=== PATIENT | female | born 1945 ===

== ENCOUNTER 2018-12-12 12:50 | Outpatient (CLI) | payer OTHER | END 2018-12-12 12:51 | disposition home or self-care (01) | LOC: RAD 12:50 | DX: M81.0 Age-related osteoporosis without current pathological fracture (principal) ==

== ENCOUNTER 2018-12-17 15:58 | Outpatient (CLI) | payer OTHER | END 2018-12-17 15:59 | disposition home or self-care (01) | LOC: OPLAB 15:58 | DX: D72.829 Elevated white blood cell count, unspecified (principal); D64.9 Anemia, unspecified; E78.5 Hyperlipidemia, unspecified; M81.0 Age-related osteoporosis without current pathological fracture; E83.40 Disorders of magnesium metabolism, unspecified; C50.919 Malignant neoplasm of unspecified site of unspecified female breast; R97.8 Other abnormal tumor markers ==

== ENCOUNTER 2019-01-21 13:18 | Outpatient (CLI) | payer OTHER | END 2019-01-21 13:19 | disposition home or self-care (01) | LOC: CARDIO 13:18 ==

== ENCOUNTER 2019-01-24 09:57 | Outpatient (CLI) | payer OTHER | END 2019-01-24 09:58 | disposition home or self-care (01) | LOC: LAB 09:57 ==

== ENCOUNTER 2019-01-30 18:08 | Outpatient (CLI) | payer OTHER | END 2019-01-30 18:09 | disposition home or self-care (01) | LOC: OPLAB 18:08 ==

== ENCOUNTER 2019-03-04 07:26 | Outpatient (CLI) | payer OTHER | END 2019-03-04 07:27 | disposition home or self-care (01) | LOC: PET-BROA 07:26 | DX: C50.919 Malignant neoplasm of unspecified site of unspecified female breast (principal); C78.01 Secondary malignant neoplasm of right lung ==

== ENCOUNTER → 2019-03-06 | Outpatient (CLI) | payer OTHER | LOC: OPLAB 18:15 ==

== ENCOUNTER 2019-03-11 08:57 | Day surgery (SDC) | payer OTHER ==
[2019-03-07 16:24] VITALS: BMI 37.1
[2019-03-11] MEDS ORDERED: Etomidate 20 mg/10ml Inj IV ONE ×2 (11:21→12:01)
[2019-03-11] MEDS ORDERED: Propofol 10 mg/ml Inj (20 ML) ONE (11:21)
[2019-03-11] MEDS ORDERED: DiphenhydrAMINE 50 mg/ml Inj ONE (11:29)
[2019-03-11] MEDS ORDERED: Simethicone 40 mg/0.6 ml Liquid (30 ml) ONE (11:41)
[2019-03-11] MEDS ORDERED: Esmolol 100 mg/10ml Inj IV ONE (11:42)
[2019-03-11] MEDS ORDERED: Sodium Chloride 0.9% 1,000 ML IV SCH (12:15)
[2019-03-11 15:49] VITALS: BP 141/63; PULSE 88; RESP 16; TEMP 98.7; O2SAT 95
== END 2019-03-11 13:43 | disposition home or self-care (01) ==
LOC: ENDO 08:57
PROVIDERS: ATTEND Internal Medicine Gastroenterology
DX: K31.7 Polyp of stomach and duodenum (principal); K29.50 Unspecified chronic gastritis without bleeding; K44.9 Diaphragmatic hernia without obstruction or gangrene; K21.0 Gastro-esophageal reflux disease with esophagitis; K31.9 Disease of stomach and duodenum, unspecified; R93.3 Abnormal findings on diagnostic imaging of other parts of digestive tract
CPT/HCPCS: 43239; 88305; 88312; 88342; J1200; J2001; J2405; J2704; J3010; J7030; J7040

== ENCOUNTER 2019-03-18 13:47 | Outpatient (CLI) | payer OTHER | END 2019-03-18 13:48 | disposition home or self-care (01) | LOC: OPLAB 13:47 ==

== ENCOUNTER 2019-04-24 08:33 | Outpatient (CLI) | payer OTHER | END 2019-04-24 08:34 | disposition home or self-care (01) | LOC: CARDIO 08:33 ==